=== PATIENT | male | born 1980 | race Caucasian/White ===

== ENCOUNTER 2017-07-15 19:35 | Inpatient (IN) | payer OTHER ==
[2017-07-15 19:56] VITALS: BP 98/54; PULSE 127; RESP 26; TEMP 103.2
[2017-07-15 20:15] VITALS: BP 122/59; PULSE 122; RESP 20; TEMP 103.1; O2SAT 94
--- NOTE | 2017-07-15 20:26 | PD ---
HPI Chief Complaint: Cold / Flu Symptoms Time Seen by Provider: 20:11 Travel History International Travel<30 days: No Contact w/Intl Traveler<30days: No Traveled to known affect area: No History of Present Illness HPI 36-year-old male presents to the emergency department for evaluation of fever and body aches that started this afternoon he was at work. Patient has not taken anything for his fever prior to arrival. The patient denies any headaches. No neck pain or back pain. He denies any chest pain or shortness of breath. He denies any cough or congestion. His family states he has had sinus congestion, the patient denies. No abdominal pain. No nausea, vomiting, diarrhea. Patient reports no chronic medical problems and takes no prescribed medications. Patient is a nonsmoker. He denies any history of COPD asthma, pneumonia. Patient has no pain. No alleviating or exacerbating factors. Moderate severity. PFSH Social History Alcohol Use: No Tobacco Use: No Substance Use: No Allergies-Medications (Allergen,Severity, Reaction): Coded Allergies: No Known Allergies (Unverified , 07/15/17) Reported Meds & Prescriptions Reported Meds & Active Scripts Active No Active Prescriptions or Reported Medications Review of Systems Except as stated in HPI: all other systems reviewed are Neg Physical Exam Narrative GENERAL: Well-nourished, well-developed obese male patient, temp of 103.2. SKIN: Focused skin assessment warm/dry. HEAD: Normocephalic. Atraumatic. ENT: Mucosa pink and moist. No erythema or exudates. No uvular edema. No uvular , palatal, or tonsillar deviation. Airway patent. Nasal turbinates appear normal without nasal blood, purulent drainage or septal hematoma. Bilateral tympanic membranes are clear without erythema or perforation. EYES: No scleral icterus. No injection or drainage. NECK: Supple, trachea midline. No JVD or lymphadenopathy. CARDIOVASCULAR: Regular rhythm without murmurs, gallops, or rubs. Patient is tachycardic with heart rate in the 120s. Bilateral radial and pedal pulses are 2+ RESPIRATORY: Breath sounds equal bilaterally. No accessory muscle use. Lungs sounds diminished due to body habitus. GASTROINTESTINAL: Abdomen soft, non-tender, nondistended. MUSCULOSKELETAL: No cyanosis, or edema. BACK: Nontender without obvious deformity. No CVA tenderness. Data Data Last Documented VS Vital Signs Date Time Temp Pulse Resp B/P (MAP) Pulse Ox O2 Delivery O2 Flow Rate FiO2 07/15/17 20:34 96 Nasal Cannula 2.00 07/15/17 20:34 20 07/15/17 20:15 103.1 122 Orders Orders Sepsis Workup Initiated (07/15/17 ) Complete Blood Count With Diff (07/15/17 20:12) Comprehensive Metabolic Panel (07/15/17 20:12) Prothrombin Time / Inr (Pt) (07/15/17 20:12) Act Partial Throm Time (Ptt) (07/15/17 20:12) Lactic Acid Sepsis Protocol (07/15/17 20:12) Magnesium (Mg) (07/15/17 20:12) Urinalysis - C+S If Indicated (07/15/17 20:12) Influenzae A/B Antigen (07/15/17 20:12) Blood Culture (07/15/17 20:12) Chest, Single Ap (07/15/17 20:12) Blood Glucose (07/15/17 20:12) Ecg Monitoring (07/15/17 20:12) Iv Access Insert/Monitor (07/15/17 20:12) Oximetry (07/15/17 20:12) Oxygen Administration (07/15/17 20:12) Sodium Chlor 0.9% 1000 Ml Inj (Ns 1000 M (07/15/17 20:30) Acetaminophen (Tylenol) (07/15/17 20:30) Ceftriaxone Inj (Rocephin Inj) (07/15/17 21:30) Azithromycin Inj (Zithromax Inj) (07/15/17 21:30) B-Type Natriuretic Peptide (07/15/17 21:20) Creatine Kinase (Cpk) (07/15/17 21:20) Troponin I (07/15/17 21:20) Electrocardiogram (07/15/17 20:14) Ketorolac Inj (Toradol Inj) (07/15/17 22:30) Admit Order (Ed Use Only) (07/15/17 22:31) Labs Laboratory Tests Test 07/15/17 20:20 07/15/17 21:20 White Blood Count 26.1 TH/MM3 Red Blood Count 5.02 MIL/MM3 Hemoglobin 13.0 GM/DL Hematocrit 40.3 % Mean Corpuscular Volume 80.3 FL Mean Corpuscular Hemoglobin 26.0 PG Mean Corpuscular Hemoglobin Concent 32.4 % Red Cell Distribution Width 17.3 % Platelet Count 251 TH/MM3 Mean Platelet Volume 7.8 FL Neutrophils (%) (Auto) 90.5 % Lymphocytes (%) (Auto) 3.0 % Monocytes (%) (Auto) 6.3 % Eosinophils (%) (Auto) 0.0 % Basophils (%) (Auto) 0.2 % Neutrophils # (Auto) 23.6 TH/MM3 Lymphocytes # (Auto) 0.8 TH/MM3 Monocytes # (Auto) 1.7 TH/MM3 Eosinophils # (Auto) 0.0 TH/MM3 Basophils # (Auto) 0.1 TH/MM3 CBC Comment DIFF FINAL Differential Comment Prothrombin Time 11.1 SEC Prothromb Time International Ratio 1.1 RATIO Activated Partial Thromboplast Time 26.6 SEC Blood Urea Nitrogen 13 MG/DL Creatinine 1.10 MG/DL Random Glucose 105 MG/DL Total Protein 7.8 GM/DL Albumin 3.8 GM/DL Calcium Level 8.6 MG/DL Magnesium Level 1.4 MG/DL Alkaline Phosphatase 82 U/L Aspartate Amino Transf (AST/SGOT) 24 U/L Alanine Aminotransferase (ALT/SGPT) 39 U/L Total Bilirubin 0.5 MG/DL Sodium Level 135 MEQ/L Potassium Level 3.8 MEQ/L Chloride Level 99 MEQ/L Carbon Dioxide Level 26.1 MEQ/L Anion Gap 10 MEQ/L Estimat Glomerular Filtration Rate 75 ML/MIN Lactic Acid Level 2.1 mmol/L Total Creatine Kinase 145 U/L Troponin I LESS THAN 0.02 NG/ML B-Type Natriuretic Peptide 15 PG/ML MDM Medical Decision Making Medical Screen Exam Complete: Yes Emergency Medical Condition: Yes Medical Record Reviewed: Yes Interpretation(s) chest x-ray = CONCLUSION: Increased interstitial markings bilaterally raising the possibility of mild pulmonary vascular congestion versus viral pneumonitis. Clinical correlation is recommended. Differential Diagnosis Influenza versus pneumonia versus viral syndrome versus UTI versus URI Narrative Course 36 year old male presents to the emergency department for evaluation of fever that started this afternoon. He has not taken anything for his fever. Has no medical problems. EKG shows sinus tachycardia, heart rate 119, no acute ST changes. CBC, CMP, magnesium, lactic acid, PTT, PT/INR, UA, and influenza, blood cultures 2, chest x-ray, CMP, CK, troponin are ordered and pending. Patient is given normal saline 1 L IV bolus, Tylenol 650 mg by mouth. CBC shows leukocytosis of 26.1. CMP shows no acute abnormality. Magnesium is 1.4. Lactic acid is 2.1. Coags are unremarkable. UA .is pending. Influenza is negative. CK is 145. Troponin is less than 0.02. BNP 15. Chest x-ray shows increased interstitial markings bilaterally raising the possibility of mild pulmonary vascular congestion versus viral pneumonitis. Clinical correlation is recommended. Patient is started on azithromycin 500 mg IV, Rocephin 1 g IV. Patient is admitted to the residents. Sepsis Criteria SIRS Criteria (2 or more): Temp > 100.9 or < 96.8, Heart rate over 90, WBC > 91989, < 4000 or > 10% bands Sepsis Criteria (SIRS+source): Infect source susp/known Severe Sepsis (+one): Lactate >2 Diagnosis Primary Impression: Pneumonia Qualified Codes: J18.9 - Pneumonia, unspecified organism Additional Impression: Sepsis Qualified Codes: A41.9 - Sepsis, unspecified organism Admitting Information Admitting Physician Requests: Admit Scripts No Active Prescriptions or Reported Meds Diana Paulson Jul 15, 2017 20:26
[2017-07-15] MEDS ORDERED: ACETAMINOPHEN 325 MG TAB PO ONE (20:30)
[2017-07-15] MEDS ORDERED: SODIUM CHLOR 0.9% 1000 ML INJ 1,000 ML IV ONE (20:30)
[2017-07-15 20:34] VITALS: RESP 20; O2SAT 96
[2017-07-15 21:13] LABS: AUTOMATED NEUTROPHIL # 23.6 TH/MM3 (1.8-7.7); BASOPHIL # 0.1 TH/MM3 (0-0.2); BASOPHIL % 0.2 % (0.0-2.0); HEMATOCRIT 40.3 % (39.0-51.0); HEMO FLAGS DIFF FINAL; LYMPHOCYTE # 0.8 TH/MM3 (1.0-4.8); MEAN CELL VOLUME 80.3 FL (80.0-100.0); MEAN CORPUSCULAR HGB CONC 32.4 % (32.0-36.0); MONO % 6.3 % (0.0-8.0); NEUT % 90.5 % (16.0-70.0); PLATELET COUNT 251 TH/MM3 (150-450); RED BLOOD COUNT 5.02 MIL/MM3 (4.50-5.90); RED CELL DISTRIBUTION WIDTH 17.3 % (11.6-17.2); WHITE BLOOD COUNT 26.1 TH/MM3 (4.0-11.0)
--- NOTE | 2017-07-15 21:15 | RADRPT ---
EXAM DATE/TIME: 07/15/2017 20:31 [facility] COMPARISON: No previous studies available for comparison. INDICATIONS : Fever. MEDICAL HISTORY : None. SURGICAL HISTORY : None. ENCOUNTER: Initial ACUITY: 1 day PAIN SCORE: 0/10 LOCATION: Bilateral chest FINDINGS: There is a poor inspiratory result. Increased interstitial markings are noted bilaterally raising the possibility of mild pulmonary vascular congestion versus viral pneumonitis. Clinical correlation is recommended. CONCLUSION: Increased interstitial markings bilaterally raising the possibility of mild pulmonary vascular conges tion versus viral pneumonitis. Clinical correlation is recommended. Milton Flores MD on July 15, 2017 at 21:12 Board Certified Radiologist. This report was verified electronically.
[2017-07-15 21:30] LABS: APTT (PATIENT) 26.6 SEC (24.3-30.1); INTERNATIONAL NORMALIZED RATIO 1.1 RATIO; PROTHROMBIN TIME - PATIENT 11.1 SEC (9.8-11.6)
[2017-07-15] MEDS ORDERED: AZITHROMYCIN INJ 500 MG in SODIUM CHLOR 0.9% 250 ML INJ 250 ML IV ONE (21:30)
[2017-07-15] MEDS ORDERED: cefTRIAXone INJ 1,000 MG in SODIUM CHLORIDE 0.9% INJ 100 ML IV ONE (21:30)
[2017-07-15 21:43] LABS: ANION GAP 10 MEQ/L (5-15); AST (GOT) 24 U/L (15-37); BICARBONATE 26.1 MEQ/L (21.0-32.0); BLOOD UREA NITROGEN 13 MG/DL (7-18); CHLORIDE 99 MEQ/L (98-107); GLOMERULAR FILTRATION RATE 75 ML/MIN (>89); MAGNESIUM 1.4 MG/DL (1.5-2.5); POTASSIUM 3.8 MEQ/L (3.5-5.1); SODIUM (NA) 135 MEQ/L (136-145)
[2017-07-15 21:44] LABS: ALT (GPT) 39 U/L (12-78)
[2017-07-15 21:46] LABS: ALKALINE PHOSPHATASE 82 U/L (45-117); TOTAL BILIRUBIN ADULT 0.5 MG/DL (0.2-1.0)
[2017-07-15 22:26] LABS: CREATINE KINASE 145 U/L (39-308)
[2017-07-15] MEDS ORDERED: KETOROLAC TROMETHAMINE 30 MG/ML (IVP) VIAL IV PUSH ONE (22:30)
--- NOTE | 2017-07-15 22:47 | HHI.HP ---
[facility] Service Family Medicine Primary Care Physician Jonathan Young , R3 MD Dony Admission Diagnosis pneumonia, sepsis Diagnoses: International Travel<30 Days: No Contact w/Intl Traveler<30days: No Known Affected Area: No History of Present Illness Mr. Bain is a 36 y/o M presenting to the ED with respiratory symptoms and fatigue. He states that for the last 15 days he's had intense sinus pressure with headaches. Earlier week he started to feel worn "run down." Over the last 24 hours to be in having fevers which at its as was measured to 103.6F. He complains of arm and leg weakness with "tired muscles and." He also endorses a productive yellow cough over this time with intermittent shortness of breath. Otherwise he has no complaints and denies any visual changes, chest pain, abdominal pain, NVD, or calf tenderness. Review of Systems Constitutional: COMPLAINS OF: Fever, Chills, DENIES: Dizziness Ears, nose, mouth, throat: COMPLAINS OF: Running Nose, DENIES: Throat pain Respiratory: COMPLAINS OF: Cough, Sputum production, Shortness of breath, DENIES: Hemoptysis Cardiovascular: DENIES: Chest pain, Palpitations Gastrointestinal: DENIES: Abdominal pain, Diarrhea, Nausea, Vomiting Genitourinary: DENIES: Dysuria Musculoskeletal: COMPLAINS OF: Joint pain, Muscle aches Integumentary: DENIES: Rash Hematologic/lymphatic: DENIES: Lymphadenopathy Immunologic/allergic: DENIES: Urticaria Neurologic: COMPLAINS OF: Headache Psychiatric: DENIES: Mood changes Past Family Social History Past Medical History Past Medical History: Obesity Past Surgical History Past Surgical/Procedural History: None Other Physicians/Providers Involved in the Care of Patient: Referred to bariatric surgery (05/06/17) Allergies: Coded Allergies: No Known Allergies (Unverified , 07/15/17) Family History Family History: Father: at 56, unknown medical history Mother: Alive at 72 unknown medical history Siblings: 2 sisters without medical problems. 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 HEENT: Atraumatic, normocephalic with EOMI. PERRLA. Oropharynx clear without erythema or exudate. No rhinorrhea. No LAD, JVD, or thyroid abnormality appreciated CARDIOVASCULAR: Regular rate and rhythm without murmurs, gallops, or rubs. Distant sounds due to body habitus RESPIRATORY: Soft crackles throughout both lung lewis on inspiration and expiration. Distant sounds due to body habitus. GASTROINTESTINAL: Abdomen soft, protuberant with positive bowel sounds. No masses appreciated. MUSCULOSKELETAL: Extremities without cyanosis or edema. No calf tenderness. Ambulating well. NEUROLOGICAL: AAO 3. Afocal. Normal speech and judgment. Normal interaction with family. Laboratory Laboratory Tests Test 07/15/17 20:20 07/15/17 21:20 White Blood Count 26.1 Red Blood Count 5.02 Hemoglobin 13.0 Hematocrit 40.3 Mean Corpuscular Volume 80.3 Mean Corpuscular Hemoglobin 26.0 Mean Corpuscular Hemoglobin Concent 32.4 Red Cell Distribution Width 17.3 Platelet Count 251 Mean Platelet Volume 7.8 Neutrophils (%) (Auto) 90.5 Lymphocytes (%) (Auto) 3.0 Monocytes (%) (Auto) 6.3 Eosinophils (%) (Auto) 0.0 Basophils (%) (Auto) 0.2 Neutrophils # (Auto) 23.6 Lymphocytes # (Auto) 0.8 Monocytes # (Auto) 1.7 Eosinophils # (Auto) 0.0 Basophils # (Auto) 0.1 CBC Comment DIFF FINAL Differential Comment Prothrombin Time 11.1 Prothromb Time International Ratio 1.1 Activated Partial Thromboplast Time 26.6 Blood Urea Nitrogen 13 Creatinine 1.10 Random Glucose 105 Total Protein 7.8 Albumin 3.8 Calcium Level 8.6 Magnesium Level 1.4 Alkaline Phosphatase 82 Aspartate Amino Transf (AST/SGOT) 24 Alanine Aminotransferase (ALT/SGPT) 39 Total Bilirubin 0.5 Sodium Level 135 Potassium Level 3.8 Chloride Level 99 Carbon Dioxide Level 26.1 Anion Gap 10 Estimat Glomerular Filtration Rate 75 Lactic Acid Level 2.1 Total Creatine Kinase 145 Troponin I LESS THAN 0.02 B-Type Natriuretic Peptide 15 Date/Time Source Procedure Growth Status 07/15/17 20:25 Blood Peripheral Aerobic Blood Culture Pending Received 07/15/17 20:25 Blood Peripheral Anaerobic Blood Culture Pending Received 07/15/17 20:15 Nasal Aspirate Influenza Types A,B Antigen (DESHAUN) - Final NEGATIVE FOR FLU A AND B ANTIGEN.... Complete Result Diagram: 07/15/17201907/15/172019 Caprini VTE Risk Assessment Caprini VTE Risk Assessment: Mod/High Risk (score >= 2) Caprini Risk Assessment Model Point Value = 1 Point Value = 2 Point Value = 3 Point Value = 5 Age 41-60 Minor surgery BMI > 25 kg/m2 Swollen legs Varicose veins or History of unexplained or recurrent spontaneous Oral contraceptives or hormone replacement Sepsis (< 1 month) Serious lung disease, including pneumonia (< 1 month) Abnormal pulmonary function Acute myocardial infarction Congestive heart failure (< 1 month) History of inflammatory bowel disease Medical patient at bed rest Age 61-74 Arthroscopic surgery Major open surgery (> 45 min) Laparoscopic surgery (> 45 min) Malignancy Confined to bed (> 72 hours) Immobilizing plaster cast Central venous access Age >= 75 History of VTE Family history of VTE Factor V Leiden Prothrombin [id number] Lupus anticoagulant Anticardiolipin antibodies Elevated serum homocysteine Heparin-induced thrombocytopenia Other congenital or acquired thrombophilia Stroke (< 1 month) Elective arthroplasty Hip, pelvis, or leg fracture Acute spinal cord injury (< 1 month) Prophylaxis Regimen Total Risk Factor Score Risk Level Prophylaxis Regimen 0-1 Low Early ambulation 2 Moderate Order ONE of the following: *Sequential Compression Device (SCD) *Heparin 5000 units SQ BID 3-4 Higher Order ONE of the following medications: *Heparin 5000 units SQ TID *Enoxaparin/Lovenox 40 mg SQ daily (WT < 150 kg, CrCl > 30 mL/min) *Enoxaparin/Lovenox 30 mg SQ daily (WT < 150 kg, CrCl > 10-29 mL/min) *Enoxaparin/Lovenox 30 mg SQ BID (WT < 150 kg, CrCl > 30 mL/min) AND/OR *Sequential Compression Device (SCD) 5 or more Highest Order ONE of the following medications: *Heparin 5000 units SQ TID (Preferred with Epidurals) *Enoxaparin/Lovenox 40 mg SQ daily (WT < 150 kg, CrCl > 30 mL/min) *Enoxaparin/Lovenox 30 mg SQ daily (WT < 150 kg, CrCl > 10-29 mL/min) *Enoxaparin/Lovenox 30 mg SQ BID (WT < 150 kg, CrCl > 30 mL/min) AND *Sequential Compression Device (SCD) Assessment and Plan Assessment and Plan Mr. Bain is a 36 y/o M presenting to the ED with respiratory symptoms and fatigue had a BM severe sepsis likely due to viral process. Code Status Full code Discussed Condition With Mrs. BoothMADHAV Problem List: (1) Sepsis ICD Codes: A41.9 - Sepsis, unspecified organism Status: Acute Plan: Patient admitted for severe sepsis likely due to viral process versus pneumonia Imaging/orders/studies: -Chest x-ray: Increased interstitial markings bilaterally raising the possibility of mild pulmonary vascular congestion versus viral pneumonitis. -CBC: WBC 26.1 with 90.5% neutrophils -Lactic acid 2.1 -BNP 15 -Incentive spirometry with Acapella -Influenza negative -Blood cultures 2: Pending Medications: -Azithromycin 500 mg daily (07/15- ) -Ceftriaxone 1 g daily (07/15- ) -Guaifenesin as needed for cough -Methylprednisolone 40 mg twice a day -Lasix 40 mg IV once -Tylenol when necessary for fever -DuoNeb every 6 hours (2) Pneumonia ICD Codes: J18.9 - Pneumonia, unspecified organism Status: Acute Plan: Please see plan as above (3) Nutrition, metabolism, and development symptoms ICD Codes: R63.8 - Other symptoms and signs concerning food and fluid intake Status: Acute Plan: Fluids: Normal saline 100 mL Electrolytes: Within normal limits, continue to monitor Diet: Regular as tolerated (4) No contraindication to deep vein thrombosis (DVT) prophylaxis ICD Codes: Z78.9 - Other specified health status Status: Acute Plan: Heparin 5000 units every 8 hours SCD/TEDs Physician Certification 2 Midnight Certification Type: Admission for Inpatient Services Order for Inpatient Services The services are ordered in accordance with Medicare regulations or non- Medicare payer requirements, as applicable. In the case of services not specified as inpatient-only, they are appropriately provided as inpatient services in accordance with the 2-midnight benchmark. Estimated LOS (days): 3 3 days is the estimated time the patient will need to remain in the hospital, assuming treatment plan goals are met and no additional complications. Post-Hospital Plan: Home Problem Qualifiers (1) Sepsis: Qualified Codes: A41.9 - Sepsis, unspecified organism (2) Pneumonia: Qualified Codes: J18.9 - Pneumonia, unspecified organism Hamilton Dick MD R2 Jul 15, 2017 22:47
[2017-07-15 22:58] LABS: LACTIC ACID GHOST NOT REPORTABLE
[2017-07-15] MEDS ORDERED: ACETAMINOPHEN 325 MG TAB PO PRN (23:15)
[2017-07-15] MEDS ORDERED: FUROSEMIDE 40 MG/4 ML VIAL IV PUSH ONE (23:15)
[2017-07-15] MEDS ORDERED: SODIUM CHLORIDE 0.9% FLUSH 10 ML FLUSH IV FLUSH PRN (23:15)
[2017-07-15] MEDS ORDERED: guaiFENesin/CODEINE SYRUP 200 MG/20 MG/10 ML CUP PO PRN (23:15)
[2017-07-15] MEDS ORDERED: ONDANSETRON HCL 4 MG/2 ML VIAL IV PUSH PRN (23:15)
[2017-07-15] MEDS: RESP: ALBUTEROL 2.5 MG/IPRATROPIUM 0.5 MG NEB (SCH) INH (23:15)
[2017-07-15 23:30] VITALS: O2SAT 95
[2017-07-16] VITALS (11 sets, daily range): BP systolic 112–129; BP diastolic 53–69; PULSE 78–109; RESP 18–20; TEMP 97.9–102.4; O2SAT 92–97
[2017-07-16] MEDS: SODIUM CHLOR 0.9% 1000 ML INJ 1,000 ML IV SCH ×3 (00:56→12:30)
[2017-07-16] MEDS: methylPREDNISolone SOD SUCC 40 MG/1 ML VIAL IV PUSH SCH ×3 (00:57→23:22)
[2017-07-16] MEDS: HEPARIN SODIUM - SQ 10,000 UNITS/ML VIAL SQ SCH ×4 (00:57→23:22)
[2017-07-16] MEDS: RESP: ALBUTEROL 2.5 MG/IPRATROPIUM 0.5 MG NEB (SCH) INH ×4 (05:14→21:48)
[2017-07-16] MEDS: SODIUM CHLORIDE 0.9% FLUSH 10 ML FLUSH IV FLUSH SCH ×2 (07:53→21:30)
[2017-07-16 08:05] LABS: AUTOMATED NEUTROPHIL # 25.4 TH/MM3 (1.8-7.7); BASOPHIL # 0.1 TH/MM3 (0-0.2); BASOPHIL % 0.4 % (0.0-2.0); HEMATOCRIT 38.1 % (39.0-51.0); HEMO FLAGS DIFF FINAL; LYMPH % 2.1 % (9.0-44.0); LYMPHOCYTE # 0.6 TH/MM3 (1.0-4.8); MEAN CELL VOLUME 80.4 FL (80.0-100.0); MEAN CORPUSCULAR HEMOGLOBIN 26.3 PG (27.0-34.0); MEAN CORPUSCULAR HGB CONC 32.8 % (32.0-36.0); MONO % 2.4 % (0.0-8.0); NEUT % 95.1 % (16.0-70.0); PLATELET COUNT 251 TH/MM3 (150-450); RED BLOOD COUNT 4.74 MIL/MM3 (4.50-5.90); RED CELL DISTRIBUTION WIDTH 17.6 % (11.6-17.2); WHITE BLOOD COUNT 26.8 TH/MM3 (4.0-11.0)
[2017-07-16 08:33] LABS: MAGNESIUM 1.6 MG/DL (1.5-2.5)
[2017-07-16 08:35] LABS: INDIRECT BILIRUBIN 0.4 MG/DL (0.0-0.8); TOTAL BILIRUBIN ADULT 0.5 MG/DL (0.2-1.0)
[2017-07-16] MEDS ORDERED: PNEUMOCOCCAL POLYVALENT INJ 25 MCG/0.5 ML SYR IM ONE (09:00)
[2017-07-16] MEDS ORDERED: INFLUENZA VIRUS VACCINE (QUADRIVALENT) 0.5 ML SYR IM ONE (09:00)
--- NOTE | 2017-07-16 09:28 | HHI.HP ---
[facility] Service Family Medicine Primary Care Physician Jonathan Young , R3 MD Dony Admission Diagnosis pneumonia, sepsis Diagnoses: International Travel<30 Days: No Contact w/Intl Traveler<30days: No Known Affected Area: No History of Present Illness Mr. Bain is a 36 y/o M presenting to the ED with respiratory symptoms and fatigue. He states that for the last 15 days he's had intense sinus pressure with headaches. Earlier in the week he started to feel worn "run down." Over the last 24 hours to be in having fevers which at its as was measured to 103.6 F. He complains of arm and leg weakness with "tired muscles and weakness." He also endorses a productive yellow cough over this time with intermittent shortness of breath. Otherwise he has no complaints and denies any visual changes, chest pain, abdominal pain, NVD, or calf tenderness. He was having some respiratory distress when he came in to the hospital however he improved greatly after some diuresis and feels improved today. His familly does think he has some sleep apnea sxs and has scheduled a bariatric assessment for the near future. Review of Systems Other Constitutional: COMPLAINS OF: Fever, Chills, DENIES: Dizziness Ears, nose, mouth, throat: COMPLAINS OF: Running Nose, DENIES: Throat pain Respiratory: COMPLAINS OF: Cough, Sputum production, Shortness of breath, DENIES: Hemoptysis Cardiovascular: DENIES: Chest pain, Palpitations Gastrointestinal: DENIES: Abdominal pain, Diarrhea, Nausea, Vomiting Genitourinary: DENIES: Dysuria Musculoskeletal: COMPLAINS OF: Joint pain, Muscle aches Integumentary: DENIES: Rash Hematologic/lymphatic: DENIES: Lymphadenopathy Immunologic/allergic: DENIES: Urticaria Neurologic: COMPLAINS OF: Headache Psychiatric: DENIES: Mood changes Past Family Social History Past Medical History Past Medical History: Obesity Past Surgical History Past Surgical/Procedural History: None Other Physicians/Providers Involved in the Care of Patient: Referred to bariatric surgery (05/06/17) Allergies: Coded Allergies: No Known Allergies (Unverified , 07/15/17) Family History Family History: Father: at 56, unknown medical history Mother: Alive at 72 unknown medical history Siblings: 2 sisters without medical problems. One brother without medical problems Children: None Social History Social History: Marital Status: Work history: [employer] Tobacco: None Alcohol: None Illicit drug use: none Physical Exam Vital Signs Vital Signs Date Time Temp Pulse Resp B/P (MAP) Pulse Ox O2 Delivery O2 Flow Rate FiO2 07/16/17 08:34 98.6 79 18 119/58 (78) 97 07/16/17 06:29 97.9 07/16/17 05:43 102.4 109 18 119/58 (78) 94 07/16/17 05:20 94 Nasal Cannula 3.00 07/16/17 00:51 99.2 105 18 115/62 (79) 97 07/16/17 00:10 07/16/17 00:00 101 20 126/64 (84) 97 Room Air 07/15/17 23:30 95 Nasal Cannula 2.00 07/15/17 20:34 96 Nasal Cannula 2.00 07/15/17 20:34 20 96 Nasal Cannula 2.00 07/15/17 20:15 103.1 122 20 122/59 (80) 94 Room Air 07/15/17 19:56 103.2 127 26 98/54 (69) Physical Exam GENERAL: Obese gentleman lying in bed in no respiratory distress SKIN: Cool not diaphoretic this am. HEENT: Atraumatic, normocephalic with EOMI. PERRLA. Oropharynx clear without erythema or exudate. No rhinorrhea. No LAD, JVD, or thyroid abnormality appreciated CARDIOVASCULAR: Regular rate and rhythm without murmurs, gallops, or rubs. Distant sounds due to body habitus RESPIRATORY: clear both lung lewis on inspiration and expiration. Distant sounds due to body habitus. GASTROINTESTINAL: Abdomen soft, protuberant with positive bowel sounds. No masses appreciated. MUSCULOSKELETAL: Extremities without cyanosis or edema. No calf tenderness. Ambulating well. NEUROLOGICAL: AAO 3. Afocal. Normal speech and judgment. Normal interaction with family. Laboratory Laboratory Tests Test 07/15/17 20:20 07/15/17 21:20 07/15/17 23:25 07/16/17 06:40 White Blood Count 26.1 26.8 Red Blood Count 5.02 4.74 Hemoglobin 13.0 12.5 Hematocrit 40.3 38.1 Mean Corpuscular Volume 80.3 80.4 Mean Corpuscular Hemoglobin 26.0 26.3 Mean Corpuscular Hemoglobin Concent 32.4 32.8 Red Cell Distribution Width 17.3 17.6 Platelet Count 251 251 Mean Platelet Volume 7.8 8.1 Neutrophils (%) (Auto) 90.5 95.1 Lymphocytes (%) (Auto) 3.0 2.1 Monocytes (%) (Auto) 6.3 2.4 Eosinophils (%) (Auto) 0.0 0.0 Basophils (%) (Auto) 0.2 0.4 Neutrophils # (Auto) 23.6 25.4 Lymphocytes # (Auto) 0.8 0.6 Monocytes # (Auto) 1.7 0.6 Eosinophils # (Auto) 0.0 0.0 Basophils # (Auto) 0.1 0.1 CBC Comment DIFF FINAL DIFF FINAL Differential Comment Prothrombin Time 11.1 Prothromb Time International Ratio 1.1 Activated Partial Thromboplast Time 26.6 Blood Urea Nitrogen 13 Creatinine 1.10 Random Glucose 105 Total Protein 7.8 7.2 Albumin 3.8 3.3 Calcium Level 8.6 Magnesium Level 1.4 1.6 Alkaline Phosphatase 82 70 Aspartate Amino Transf (AST/SGOT) 24 17 Alanine Aminotransferase (ALT/SGPT) 39 37 Total Bilirubin 0.5 0.5 Sodium Level 135 Potassium Level 3.8 Chloride Level 99 Carbon Dioxide Level 26.1 Anion Gap 10 Estimat Glomerular Filtration Rate 75 Lactic Acid Level 2.1 1.4 Total Creatine Kinase 145 Troponin I LESS THAN 0.02 B-Type Natriuretic Peptide 15 Direct Bilirubin 0.1 Indirect Bilirubin 0.4 Date/Time Source Procedure Growth Status 07/15/17 20:25 Blood Peripheral Aerobic Blood Culture Pending Received 07/15/17 20:25 Blood Peripheral Anaerobic Blood Culture Pending Received 07/15/17 20:15 Nasal Aspirate Influenza Types A,B Antigen (DESHAUN) - Final NEGATIVE FOR FLU A AND B ANTIGEN.... Complete Result Diagram: 07/16/1740 07/15/172019 Caprini VTE Risk Assessment Caprini VTE Risk Assessment: Mod/High Risk (score >= 2) Caprini Risk Assessment Model Point Value = 1 Point Value = 2 Point Value = 3 Point Value = 5 Age 41-60 Minor surgery BMI > 25 kg/m2 Swollen legs Varicose veins or History of unexplained or recurrent spontaneous Oral contraceptives or hormone replacement Sepsis (< 1 month) Serious lung disease, including pneumonia (< 1 month) Abnormal pulmonary function Acute myocardial infarction Congestive heart failure (< 1 month) History of inflammatory bowel disease Medical patient at bed rest Age 61-74 Arthroscopic surgery Major open surgery (> 45 min) Laparoscopic surgery (> 45 min) Malignancy Confined to bed (> 72 hours) Immobilizing plaster cast Central venous access Age >= 75 History of VTE Family history of VTE Factor V Leiden Prothrombin [id number] Lupus anticoagulant Anticardiolipin antibodies Elevated serum homocysteine Heparin-induced thrombocytopenia Other congenital or acquired thrombophilia Stroke (< 1 month) Elective arthroplasty Hip, pelvis, or leg fracture Acute spinal cord injury (< 1 month) Prophylaxis Regimen Total Risk Factor Score Risk Level Prophylaxis Regimen 0-1 Low Early ambulation 2 Moderate Order ONE of the following: *Sequential Compression Device (SCD) *Heparin 5000 units SQ BID 3-4 Higher Order ONE of the following medications: *Heparin 5000 units SQ TID *Enoxaparin/Lovenox 40 mg SQ daily (WT < 150 kg, CrCl > 30 mL/min) *Enoxaparin/Lovenox 30 mg SQ daily (WT < 150 kg, CrCl > 10-29 mL/min) *Enoxaparin/Lovenox 30 mg SQ BID (WT < 150 kg, CrCl > 30 mL/min) AND/OR *Sequential Compression Device (SCD) 5 or more Highest Order ONE of the following medications: *Heparin 5000 units SQ TID (Preferred with Epidurals) *Enoxaparin/Lovenox 40 mg SQ daily (WT < 150 kg, CrCl > 30 mL/min) *Enoxaparin/Lovenox 30 mg SQ daily (WT < 150 kg, CrCl > 10-29 mL/min) *Enoxaparin/Lovenox 30 mg SQ BID (WT < 150 kg, CrCl > 30 mL/min) AND *Sequential Compression Device (SCD) Assessment and Plan Problem List: (1) Sepsis ICD Codes: A41.9 - Sepsis, unspecified organism Status: Acute Plan: Patient admitted for severe sepsis likely due to viral process versus pneumonia. improved today Imaging/orders/studies: -Chest x-ray: Increased interstitial markings bilaterally raising the possibility of mild pulmonary vascular congestion versus viral pneumonitis. -CBC: WBC 26.1 with 90.5% neutrophils -Lactic acid 2.1 -BNP 15 -Incentive spirometry with Acapella -Influenza negative -Blood cultures 2: Pending Medications: -Azithromycin 500 mg daily (07/15- ) -Ceftriaxone 1 g daily (07/15- ) -Guaifenesin as needed for cough -Methylprednisolone 40 mg twice a day -Lasix 40 mg IV once -Tylenol when necessary for fever -DuoNeb every 6 hours (2) Pneumonia ICD Codes: J18.9 - Pneumonia, unspecified organism Status: Acute Plan: Please see plan as above (3) Nutrition, metabolism, and development symptoms ICD Codes: R63.8 - Other symptoms and signs concerning food and fluid intake Status: Acute Plan: Fluids: Normal saline 100 mL Electrolytes: Within normal limits, continue to monitor Diet: Regular as tolerated (4) No contraindication to deep vein thrombosis (DVT) prophylaxis ICD Codes: Z78.9 - Other specified health status Status: Acute Plan: Heparin 5000 units every 8 hours SCD/TEDs Problem Qualifiers (1) Sepsis: Qualified Codes: A41.9 - Sepsis, unspecified organism (2) Pneumonia: Qualified Codes: J18.9 - Pneumonia, unspecified organism Jennie Lamb MD Jul 16, 2017 09:28
--- NOTE | 2017-07-16 16:09 | EKG ---
Date Performed: 07/15/2017 Time Performed: 20:14:31 PTAGE: 36 years EKG: Normal Sinus rhythm INTRAVENTRICULAR CONDUCTION DELAY Diffuse nonspecific anterolateral ST elevation. Clinical corrolati on is advised. NO PREVIOUS TRACING DOCTOR: Merry Gilliam Interpretating Date/Time 07/16/2017 16:09:17
--- NOTE | 2017-07-16 17:46 | PQ ---
Physician Query Response Document PATIENT: NEIL CASTILLO : 1980 ADMIT DATE: 07/15/2017 10:32 PM DISCH DATE: RESPONDING PROVIDER #: Genaro QUERY TEXT: Sepsis Query Based on your medical judgement, can you further define the character of sepsis 1. Sepsis (without organ dysfunction) 2. Severe Sepsis (with Organ Dysfunction or Lactic Acid >2) 3. Septic Shock: Hypotensive no response to fluids or Lactic Acid >4 4. A localized Infection only 5. Another condition - please specify 6. Unable to determine - please explain. The patient's Clinical Indicators include: Vital signs: 103.2 (Temp > 100.9)Heart rate: 127 (>90bpm) rESP RATE: 26 (>20/Minute ) BP98/54 WBC 26.1 ((WBC >12K) Lactic Acid 2.1 (>2) Query created by: Viola Lai on 07/09/2017 12:00 AM RESPONSE TEXT: He had severe sepsis as his lactic acid was higher than 2 Electronically signed by: Jennie Lamb MD 07/16/2017 5:42 PM
[2017-07-16] MEDS ORDERED: cefTRIAXone INJ 1,000 MG in SODIUM CHLORIDE 0.9% INJ 100 ML IV SCH (22:00)
[2017-07-16] MEDS ORDERED: AZITHROMYCIN INJ 500 MG in SODIUM CHLOR 0.9% 250 ML INJ 250 ML IV SCH (23:00)
[2017-07-17] VITALS: BP 102/55; PULSE 95; RESP 24; TEMP 98.6; O2SAT 96
[2017-07-17 04:00] VITALS: BP 121/60; PULSE 77; RESP 20; TEMP 97.7; O2SAT 93
[2017-07-17] MEDS: RESP: ALBUTEROL 2.5 MG/IPRATROPIUM 0.5 MG NEB (SCH) INH ×3 (04:14→16:02)
[2017-07-17] MEDS: SODIUM CHLOR 0.9% 1000 ML INJ 1,000 ML IV SCH (04:36)
[2017-07-17 08:00] VITALS: BP 106/57; PULSE 84; RESP 16; TEMP 97.6; O2SAT 94
[2017-07-17 08:04] LABS: AUTOMATED NEUTROPHIL # 17.9 TH/MM3 (1.8-7.7); BASOPHIL # 0.1 TH/MM3 (0-0.2); BASOPHIL % 0.3 % (0.0-2.0); HEMATOCRIT 38.6 % (39.0-51.0); HEMO FLAGS DIFF FINAL; LYMPH % 4.9 % (9.0-44.0); MEAN CELL VOLUME 81.8 FL (80.0-100.0); MEAN CORPUSCULAR HEMOGLOBIN 26.2 PG (27.0-34.0); MONO % 4.5 % (0.0-8.0); NEUT % 90.3 % (16.0-70.0); PLATELET COUNT 280 TH/MM3 (150-450); RED BLOOD COUNT 4.72 MIL/MM3 (4.50-5.90); RED CELL DISTRIBUTION WIDTH 18.1 % (11.6-17.2); WHITE BLOOD COUNT 19.8 TH/MM3 (4.0-11.0)
[2017-07-17] MEDS: SODIUM CHLORIDE 0.9% FLUSH 10 ML FLUSH IV FLUSH SCH (08:17)
[2017-07-17 08:35] LABS: ALKALINE PHOSPHATASE 71 U/L (45-117); ALT (GPT) 38 U/L (12-78); ANION GAP 8 MEQ/L (5-15); AST (GOT) 22 U/L (15-37); BLOOD UREA NITROGEN 15 MG/DL (7-18); CHLORIDE 104 MEQ/L (98-107); GLOMERULAR FILTRATION RATE 109 ML/MIN (>89); POTASSIUM 4.5 MEQ/L (3.5-5.1); SODIUM (NA) 138 MEQ/L (136-145); TOTAL BILIRUBIN ADULT 0.2 MG/DL (0.2-1.0)
[2017-07-17] MEDS: HEPARIN SODIUM - SQ 10,000 UNITS/ML VIAL SQ SCH (09:26)
[2017-07-17 09:57] VITALS: O2SAT 94
--- NOTE | 2017-07-17 10:45 | HHI.FPPN ---
Subjective Remarks Patient seen and examined this morning. No acute events overnight per nursing staff. Patient states that he "feels back to normal and is 100%. "He currently has no complaints and denies any fevers, chills, shortness of breath, chest pain , NVD, abdominal pain, or calf tenderness. He states that he would like to be tested for possible sleep apnea, but we discussed that this would have to be arranged as an outpatient. (Hamilton Dick MD R2) Objective Vitals Vital Signs Date Time Temp Pulse Resp B/P (MAP) Pulse Ox O2 Delivery O2 Flow Rate FiO2 07/17/17 09:57 94 21 07/17/17 08:00 97.6 84 16 106/57 (73) 94 07/17/17 04:00 97.7 77 20 121/60 (80) 93 07/17/17 00:00 98.6 95 24 102/55 (71) 96 07/16/17 21:50 92 07/16/17 19:56 98.4 92 20 129/69 (89) 96 07/16/17 16:35 94 Nasal Cannula 3.00 07/16/17 16:00 98.6 89 18 116/53 (74) 93 07/16/17 12:00 98.5 78 18 112/59 (76) 93 I/O 07/16/17 07/16/17 07/16/17 07/17/17 07/17/17 07/17/17 07:00 15:00 23:00 07:00 15:00 23:00 Intake Total 600 ml 1127 ml 350 ml Balance 600 ml 1127 ml 350 ml Intake Oral 600 ml IV Total 1127 ml 350 ml # Voids 4 3 # Bowel Movements 1 (Hamilton Dick MD R2) Result Diagram: 07/17/17 0550 07/17/17 0550 Objective Remarks GENERAL: Obese gentleman lying in bed in no respiratory distress SKIN: Cool and dry. No rash. HEENT: Atraumatic, normocephalic with EOMI. MMM. No rhinorrhea. No LAD, JVD, or thyroid abnormality appreciated CARDIOVASCULAR: Regular rate and rhythm without murmurs, gallops, or rubs. Distant sounds due to body habitus RESPIRATORY: Clear to auscultation bilaterally with no CRW. No increased breathing.. Distant sounds due to body habitus. GASTROINTESTINAL: Abdomen soft, protuberant with positive bowel sounds. No masses appreciated. MUSCULOSKELETAL: Extremities without cyanosis or edema. No calf tenderness. Ambulating well. NEUROLOGICAL: AAO 3. Afocal. Normal speech and judgment. Normal interaction with family. (Hamilton Dick MD R2) A/P Assessment and Plan Mr. Bain is a 36 y/o M presenting to the ED with respiratory symptoms and fatigue had a BM severe sepsis likely due to viral process. Discharge Planning Today. (Hamilton Dick MD R2) Attending Attestation Patient seen and examined. Case reviewed and discussed with the resident team. Agree with plan of care as discussed with me and documented in the resident note. agree with pts assessment that he "looks 100% better". He was sitting up in his chair breathing well and having no problems (Jennie Lamb MD) Problem List: (1) Sepsis ICD Codes: A41.9 - Sepsis, unspecified organism Status: Acute Plan: Patient admitted for severe sepsis likely due to viral process versus pneumonia. Likely viral process, however patient does have a considerable to WBC with elevation in neutrophils suggesting bacterial etiology. Imaging/orders/studies: -Chest x-ray: Increased interstitial markings bilaterally raising the possibility of mild pulmonary vascular congestion versus viral pneumonitis. -BNP 15 -Incentive spirometry with Acapella -Influenza negative -Blood cultures 2: NTD Medications: -Azithromycin 500 mg daily (07/15-07/17) -Ceftriaxone 1 g daily (07/15-07/17) -Guaifenesin as needed for cough -Methylprednisolone 40 mg twice a day -Lasix 40 mg IV once -Tylenol when necessary for fever -DuoNeb every 6 hours -Patient to be discharged home with Levaquin for a total of 10 days. (2) Pneumonia ICD Codes: J18.9 - Pneumonia, unspecified organism Status: Acute Plan: Please see plan as above (3) Nutrition, metabolism, and development symptoms ICD Codes: R63.8 - Other symptoms and signs concerning food and fluid intake Status: Acute Plan: Fluids: Normal saline 100 mL Electrolytes: Within normal limits, continue to monitor Diet: Regular as tolerated (4) No contraindication to deep vein thrombosis (DVT) prophylaxis ICD Codes: Z78.9 - Other specified health status Status: Acute Plan: Heparin 5000 units every 8 hours, to be discontinued on discharge SCD/TEDs (Hamilton Dick MD R2) Problem Qualifiers (1) Sepsis: Qualified Codes: A41.9 - Sepsis, unspecified organism (2) Pneumonia: Qualified Codes: J18.9 - Pneumonia, unspecified organism Hamilton Dick MD R2 Jul 17, 2017 10:45 Jennie Lamb MD Jul 18, 2017 12:43
[2017-07-17] MEDS ORDERED: LEVO750T3 PO (10:46)
[2017-07-17] MEDS ORDERED: PRED50 PO (10:46)
--- NOTE | 2017-07-17 10:46 | HHI.DCPOC ---
Discharge Care Plan Diagnosis: (1) Pneumonia (2) Sepsis Goals to Promote Your Health * To prevent worsening of your condition and complications * To maintain your health at the optimal level Directions to Meet Your Goals Take your medications as prescribed Follow your dietary instruction Follow activity as directed Keep your appointments as scheduled Take your immunizations and boosters as scheduled If your symptoms worsen call your PCP, if no PCP go to Urgent Care Center or Emergency Room Smoking is Dangerous to Your Health. Avoid second hand smoke Call the 24-hour hour crisis hotline for domestic abuse at Hamilton Dick MD R2 Jul 17, 2017 10:46
[2017-07-17] MEDS: methylPREDNISolone SOD SUCC 40 MG/1 ML VIAL IV PUSH SCH (11:32)
[2017-07-17 12:00] VITALS: BP 119/59; PULSE 87; RESP 16; TEMP 98.2; O2SAT 92
[2017-07-17 16:04] VITALS: O2SAT 93
== END 2017-07-17 17:08 | disposition home or self-care (01) | DRG 871 ==
LOC: NEPC 19:35 → NEDA 22:32 → N05B 07-16 00:17
PROVIDERS: ADMIT Family Medicine; ATTEND Family Medicine
DX: A41.9 Sepsis, unspecified organism (principal); J18.9 Pneumonia, unspecified organism; E87.2 Acidosis; R65.20 Severe sepsis without septic shock; E66.9 Obesity, unspecified; R00.0 Tachycardia, unspecified
CPT/HCPCS: 71010; 80053; 80076; 82550; 83605; 83735; 83880; 84484; 85025; 85610; 85730; 87040; 87804; 93005; 94150; 94640; 94664; 94667; 94668; 96361; 96365; J0456; J0696; J1644; J1885; J2920; J7030; J7050